=== PATIENT | male | born 1945 | race Caucasian/White ===

== ENCOUNTER → 2023-07-15 12:40 | Outpatient (REF) | payer MEDICARE, OTHER, SELFPAY ==
[2023-07-15 13:24] LABS: % Basophils 0.8 % (0-2); % Eosinophils 4.9 % (0-6); % Immature Granulocytes 0.2 % (0-0.5); % Lymphocytes 20.4 % (20.5-51.1); % Monocytes 11.8 % (1.7-9.3); % Neutrophils 61.9 % (42.2-75.2); Absolute Eosinophils 0.2 10^3/uL (0-0.7); Absolute Monocytes 0.6 10^3/uL (0.1-0.6); Hemoglobin 11.3 g/dL (13.0-18.0); Mean Corp Hgb Conc. 35.3 g/dL (33.0-37.0); Mean Corpuscular Hgb 32.4 pg (27.0-31.0); Mean Corpuscular Volume 91.7 fL (80.0-94.0); Mean Platelet Volume 9.2 fL (7.4-10.4); Nucleated Red Blood Cells % 0 % (-); Platelet Count 206 10^3/uL (130-400); Red Blood Cell Count 3.49 10^6/uL (4.70-6.10); Red Cell Dist. Width 13.5 % (11.5-14.5); White Blood Cell Count 4.9 10^3/uL (4.8-10.8)
[2023-07-15 13:50] LABS: ALT (SGPT) 12 U/L (0-50); AST (SGOT) 23 U/L (17-59); Albumin 3.8 g/dl (3.5-5.0); Alkaline Phosphatase 82 U/L (38-126); Blood Urea Nitrogen 22 mg/dl (9-20); Calcium 8.5 mg/dl (8.4-10.2); Carbon Dioxide 23 mmol/L (22-30); Chloride 97 mmol/L (98-107); Glucose 83 mg/dl (70-99); HDL Cholesterol 74 mg/dl; LDL Cholesterol, Calculated 63 mg/dl; Potassium 4.8 mmol/L (3.5-5.1); Sodium 125 mmol/L (135-145); Total Bilirubin 0.7 mg/dl (0.2-1.3); Total Cholesterol 149 mg/dl (50-199); Total Protein 6.6 g/dl (6.3-8.2); Triglyceride 61 mg/dl (10-149); Very Low Density Lipoprotein 12 mg/dl (0-30); eGFR 33.74
[2023-07-15 14:19] LABS: PSA, Total - Screen 0.61 ng/ml (0.0-4.0)
== END ==
LOC: REG 12:40
PROVIDERS: ATTENDING PHYSICIAN Internal Medicine
DX: Z00.00 Encounter for general adult medical examination without abnormal findings (principal); I10 Essential (primary) hypertension; D64.9 Anemia, unspecified; R63.4 Abnormal weight loss; N40.0 Benign prostatic hyperplasia without lower urinary tract symptoms; Z12.5 Encounter for screening for malignant neoplasm of prostate
CPT/HCPCS: 36415; 80053; 80061; 85025; G0103

== ENCOUNTER 2023-07-19 12:14 | Emergency (ER) | payer MEDICARE, OTHER, SELFPAY ==
[2023-07-19 12:19] VITALS: BP 216/114
--- NOTE | 2023-07-19 12:38 | ED.GENMED ---
History of Present Illness
General
Chief Complaint: Cough
Source: patient
Exam Limitations: none
Time Seen by Provider: 07/19/23 12:32
Nursing documentation reviewed up to this point in time: agreed with
Travel History
Have you had any contact with someone who has COVID-19?: No
Do you have any symptoms of coronavirus? Fever > 100 degrees, chills, cough, shortness of breath, sore throat, loss of taste or smell, muscle aches, or headache?: No
History of Present Illness
History of Present Illness:
77-year-old male with history of HTN, COPD, smoker, presents stating he has a little worse than usual cough past 2 days, yesterday coughed blood 'about 3 dozen times.' Today 'not as much and not as much blood.' Denies fever/chills, denies CP, SOB
any worse than usual. Denies n/v/d/c.
Had out pt lab work 2 days ago in prep for PCP routine visit.
Past History
Past History
ED Past Medical History: HTN
ED Past Surgical History: Orthopedic and Other (Epidural injection 10/21)
Social History
Tobacco: Smoker
Alcohol: None
Personal:
Living: with family
Employment: Retired
Review of Systems
Review of Systems
Allergies reviewed?: Yes
All Other Systems: ROS reviewed and negative except as documented in HPI and ROS
Constitutional: Denies fever or chills
Respiratory: Reports cough and hemoptysis; Denies trouble breathing
Cardiac: Denies chest pain
ABD/GI: Denies abdominal pain, nausea or vomiting
: Denies dysuria or difficulty voiding
Musculoskeletal: Denies edema
Skin: Reports no symptoms
Neurological: Denies dizzy, headache, weakness or numbness
Phy Exam
Physical Exam
Physical Exam:
GENERAL: No acute distress. A&Ox3.
CONSTITUTIONAL: Afebrile.
EYES: Clear, conjunctivae normal
ENMT: moist mucus membranes, Pharynx nl
RESPIRATORY: Regular respirations, nonlabored, lungs clear. Intermittent cough with hemoptysis
CARDIOVASCULAR: Regular rate and rhythm, no murmurs, no rubs.
GI: Soft, nontender
MUSCULOSKELETAL: Moves with ease. Well perfused.
SKIN: Warm, dry, pink
PSYCH: Normal mood and affect. Well kept, interactive and appropriate
NEUROLOGIC: Awake, alert and oriented. No focal neurological deficits
Course
Orders/Labs/Results
Orders:
Orders
07/19/23 12:45
Electrocardiogram (*1) Urgent
Reason for Study: Other
Other Reason for Exam: Respiratory Distress
Cardiac Monitoring- Treatment ONCE
EKG- Treatment ONCE
IV Insert/Care/Rem.- Treatment PRN
O2 Therapy [RESP] Urgent
Titrate/Wean O2 to maintain O2 sat greater than (%): 93
Special Instructions: TO MAINTAIN CONTINUOUS O2 SATS >/= 93%
Pulse Ox/cont/shift [RESP] Urgent
Quantity: 1
Special Instructions: continuous pulse ox
07/19/23 12:48
Complete Blood Count/With Diff Urgent
Comprehensive Metabolic Panel Urgent
DDimer [D-Dimer] Urgent
NT-proBNP Urgent
Troponin I Urgent
07/19/23 13:23
CT Chest Pe Study Urgent
Comment:
Reason For Exam: coughing up blood, elevated dimer
Abnormal Lab Results
07/19/23
12:48
RBC 3.48 L 10^6/uL
(4.70-6.10)
Hgb 11.5 L g/dL
(13.0-18.0)
Hct 32.7 L %
(39.0-52.0)
MCH 33.0 H pg
(27.0-31.0)
Absolute Lymphs (auto) 0.9 L 10^3/uL
(1.2-3.4)
Lymphocytes % 17.6 L %
(20.5-51.1)
Monocytes % 11.4 H %
(1.7-9.3)
D-Dimer 1.66 H ug/mlFEU
(0.00-0.50)
Sodium 128 L mmol/L
(135-145)
BUN 23 H mg/dl
(9-20)
Creatinine 1.9 H mg/dL
(0.7-1.3)
07/19/23 12:48
07/19/23 12:48
Vital Signs
Initial and Last Documented VS:
Initial Vital Signs
Temp Pulse Resp BP Pulse Ox
98.7 F 74 18 216/114 99
07/19/23 12:19 07/19/23 12:19 07/19/23 12:19 07/19/23 12:19 07/19/23 12:19
Last Documented Vital Signs
Temp Pulse Resp BP Pulse Ox
98.7 F 83 21 202/97 99
07/19/23 12:19 07/19/23 13:57 07/19/23 13:57 07/19/23 15:41 07/19/23 12:19
MDM/Problems Addressed
Differential Diagnosis Includes:
CHF, PE, pneumonia, lung cancer
MDM/Problems Addressed:
77-year-old male with history of HTN, COPD, smoker, presents stating he has a little worse than usual cough past 2 days, yesterday coughed blood 'about 3 dozen times.' Today 'not as much and not as much blood.' Denies fever/chills, denies CP, SOB
any worse than usual. Denies n/v/d/c.
Had out pt lab work 2 days ago in prep for PCP routine visit.
07/19/2023 1324 PM
CBC with no clinically significant abnormality, his baseline anemia
CMP: Sodium 128, BUN/creat 23/1.9, his baseline
D-dimer elevated at 1.66
07/19/2023 1515 PM
CAT scan chest PE study radiology report read: 1. No evidence of pulmonary embolism or thoracic aortic dissection. Extensive plaque within the thoracic and thoracoabdominal aorta, without aneurysm or dissection.
2. Focal ground glass opacity within the medial segment of the left upper lobe, new compared to prior CT, suggestive of pneumonia.
3. Moderate centrilobular and paraseptal emphysema, which has progressed compared to prior CT dated 08/05/2021.
4. Severe coronary arterial calcification. Please correlate with symptoms of and risk factors for coronary artery disease, with further workup as clinically appropriate.
07/19/2023 1553 PM
Patient is hypertensive, asymptomatic, has a prescheduled appointment to see his primary doctor in 9 days. States he takes his blood pressure meds religiously and did take it today. He will record his daily blood pressure and discuss with his PCP
Discussed smoking sensation with him, he is not interested
Prescription for doxycycline sent to his pharmacy. He is stable for discharge
Patient ambulated out with steady gait at discharge
Chronic conditions affecting care: HTN and COPD
*Critical Care Note
Total Time (30-74mins, 75-104mins- exclusive of procedures): Not Applicable
ED Attending Note
-
Portions of this chart may have been created with voice recognition software.� Occasional wrong word or��sound alike� substitutions may have occurred due to the inherent limitations of voice recognition software.
Discharge Plan
Departure
Patient Disposition: Home (Routine Discharge)
Date of Disposition: 07/19/23
Time of Disposition: 15:33
Patient with high blood pressure during this ER visit?: Yes
Condition: Fair
Discharge Problem:
Pneumonia, Cough with hemoptysis
Instructions: Pneumonia, Adult (DC), BLOOD PRESSURE
Prescriptions:
New
doxycycline hyclate 100 mg capsule
100 mg PO BID Qty: 14 0RF
No Action
potassium chloride [Klor-Con M20] 20 MEQ tablet,ER particles/crystals
20 meq PO DAILY
Patient Comments:
07/19/2023, pt. cuts pill in half and takes both halves at once daily.
metoprolol succinate 25 MG tablet extended release 24 hr
25 mg PO DAILY
losartan [Cozaar] 100 MG tablet
100 mg PO DAILY
finasteride 5 MG tablet
5 mg PO DAILY
indomethacin 25 mg Capsule
25 mg PO TID PRN (Reason: inflammation)
Trelegy Ellipta 100-62.5-25 mcg Blister With Device
1 inh INHALATION R DAILY
sodium chloride 1 GRAM tablet,soluble
1 g PO DAILY
bumetanide 1 MG tablet
1 mg PO DAILY
Referrals:
Rylee Nunez, [Active] - Call in 1-3 days for appt
Luis A Trujillo MD [Family Provider] - Keep scheduled appt
Activity Restrictions/Additional Instructions:
As we discussed, I sent a prescription for an antibiotic to your pharmacy. Pick it up and start it tonight.
All of the mechanical maintenance are in the same office but I gave you the name of a new one that you can call and see if you can get in to see.
Keep your appointment with your doctor on 07/28. Take your blood pressure same time every day and discuss with your doctor at that visit.
Interventions
Interventions:
*Risk Screen - Suicide Last Done: 07/19/23 12:19
*General Assessment Last Done: 07/19/23 12:19
*Neglect/Abuse Screening Last Done: 07/19/23 12:19
ED- Fall Risk Assessment Last Done: 07/19/23 12:52
*ED COVID-19 Vaccine History Last Done: 07/19/23 12:19
*Nursing Disposition Last Done: 07/19/23 15:56
ED- Pulmonary Assessment Last Done: 07/19/23 12:52
Discharge Date and Time
Discharge Date/Time: 07/19/23 15:56
[2023-07-19 12:46] VITALS: BMI 21.4
[2023-07-19 13:00] VITALS: BP 202/101
[2023-07-19 13:04] LABS: % Basophils 0.6 % (0-2); % Eosinophils 3.1 % (0-6); % Immature Granulocytes 0.2 % (0-0.5); % Lymphocytes 17.6 % (20.5-51.1); % Monocytes 11.4 % (1.7-9.3); % Neutrophils 67.1 % (42.2-75.2); Absolute Eosinophils 0.2 10^3/uL (0-0.7); Absolute Lymphocytes 0.9 10^3/uL (1.2-3.4); Absolute Monocytes 0.6 10^3/uL (0.1-0.6); Absolute Neutrophils 3.4 10^3/uL (1.4-6.5); Hematocrit 32.7 % (39.0-52.0); Hemoglobin 11.5 g/dL (13.0-18.0); Mean Corp Hgb Conc. 35.2 g/dL (33.0-37.0); Mean Platelet Volume 9.3 fL (7.4-10.4); Nucleated Red Blood Cells % 0 % (-); Platelet Count 198 10^3/uL (130-400); Red Blood Cell Count 3.48 10^6/uL (4.70-6.10); Red Cell Dist. Width 13.4 % (11.5-14.5); White Blood Cell Count 5.1 10^3/uL (4.8-10.8)
[2023-07-19 13:10] LABS: D-Dimer 1.66 ug/mlFEU (0.00-0.50)
[2023-07-19 13:13] LABS: ALT (SGPT) 13 U/L (0-50); AST (SGOT) 22 U/L (17-59); Albumin 4.1 g/dl (3.5-5.0); Alkaline Phosphatase 83 U/L (38-126); Blood Urea Nitrogen 23 mg/dl (9-20); Calcium 8.7 mg/dl (8.4-10.2); Carbon Dioxide 22 mmol/L (22-30); Chloride 100 mmol/L (98-107); Estimated Creatinine Clearance 33 ml/min; Glucose 95 mg/dl (70-99); Potassium 4.2 mmol/L (3.5-5.1); Sodium 128 mmol/L (135-145); eGFR 35.88
[2023-07-19 13:25] LABS: NT-proBNP 5020 pg/ml; Troponin I 0.032 ng/ml
[2023-07-19 15:41] VITALS: BP 202/97
== END 2023-07-19 15:56 | disposition home or self-care (01) ==
LOC: EMR 12:14
PROVIDERS: Registered Nurse; EMERGENCY PHYSICIAN Emergency Medicine; FAMILY PHYSICIAN Internal Medicine
DX: J18.9 Pneumonia, unspecified organism (principal); R05.9 Cough, unspecified; R04.2 Hemoptysis; I11.0 Hypertensive heart disease with heart failure; I50.9 Heart failure, unspecified; F17.200 Nicotine dependence, unspecified, uncomplicated
CPT/HCPCS: 99284; 71275; 80053; 83880; 84484; 85025; 85379; 93005; Q9967

== ENCOUNTER → 2023-08-11 11:36 | Outpatient (REF) | payer MEDICARE, OTHER, SELFPAY ==
[2023-08-11 13:13] LABS: % Basophils 0.6 % (0-2); % Eosinophils 2.8 % (0-6); % Immature Granulocytes 0.4 % (0-0.5); % Monocytes 7.9 % (1.7-9.3); % Neutrophils 71.3 % (42.2-75.2); Absolute Eosinophils 0.1 10^3/uL (0-0.7); Absolute Lymphocytes 0.8 10^3/uL (1.2-3.4); Absolute Monocytes 0.4 10^3/uL (0.1-0.6); Absolute Neutrophils 3.5 10^3/uL (1.4-6.5); Hematocrit 32.6 % (39.0-52.0); Hemoglobin 11.5 g/dL (13.0-18.0); Mean Corp Hgb Conc. 35.3 g/dL (33.0-37.0); Mean Corpuscular Hgb 32.4 pg (27.0-31.0); Mean Corpuscular Volume 91.8 fL (80.0-94.0); Mean Platelet Volume 9.6 fL (7.4-10.4); Nucleated Red Blood Cells % 0 % (-); Platelet Count 197 10^3/uL (130-400); Red Blood Cell Count 3.55 10^6/uL (4.70-6.10); Red Cell Dist. Width 13.5 % (11.5-14.5); White Blood Cell Count 4.9 10^3/uL (4.8-10.8)
[2023-08-11 13:51] LABS: Blood Urea Nitrogen 26 mg/dl (9-20); Iron 77 ug/dl (49-181)
[2023-08-11 14:01] LABS: Percent Saturation 29 % (20-50); Total Iron Binding Capacity 264 ug/dl (261-462)
[2023-08-11 14:55] LABS: Vitamin B12 383 pg/ml (239-931)
== END ==
LOC: REG 11:36
PROVIDERS: ATTENDING PHYSICIAN Internal Medicine
DX: D64.9 Anemia, unspecified (principal); E86.0 Dehydration; Z79.899 Other long term (current) drug therapy
CPT/HCPCS: 36415; 82565; 82607; 82746; 83540; 83550; 84520; 85025

== ENCOUNTER 2024-03-31 10:58 | Emergency (ER) | payer MEDICARE, OTHER, SELFPAY ==
[2024-03-31 11:07] VITALS: BP 220/101
[2024-03-31 11:27] VITALS: BP 202/123
[2024-03-31 12:18] LABS: % Basophils 0.5 % (0-2); % Immature Granulocytes 0.5 % (0-0.5); % Lymphocytes 13.1 % (20.5-51.1); % Monocytes 11.7 % (1.7-9.3); % Neutrophils 72.2 % (42.2-75.2); Absolute Eosinophils 0.1 10^3/uL (0-0.7); Absolute Lymphocytes 0.8 10^3/uL (1.2-3.4); Absolute Monocytes 0.8 10^3/uL (0.1-0.6); Absolute Neutrophils 4.6 10^3/uL (1.4-6.5); Hematocrit 30.9 % (39.0-52.0); Hemoglobin 10.9 g/dL (13.0-18.0); Mean Corp Hgb Conc. 35.3 g/dL (33.0-37.0); Mean Corpuscular Hgb 31.9 pg (27.0-31.0); Mean Corpuscular Volume 90.4 fL (80.0-94.0); Mean Platelet Volume 8.8 fL (7.4-10.4); Nucleated Red Blood Cells % 0 % (-); Platelet Count 164 10^3/uL (130-400); Red Blood Cell Count 3.42 10^6/uL (4.70-6.10); Red Cell Dist. Width 13.5 % (11.5-14.5); White Blood Cell Count 6.4 10^3/uL (4.8-10.8)
[2024-03-31 12:45] LABS: ALT (SGPT) 13 U/L (0-50); AST (SGOT) 19 U/L (17-59); Albumin 4.2 g/dl (3.5-5.0); Alkaline Phosphatase 70 U/L (38-126); Blood Urea Nitrogen 26 mg/dl (9-20); Calcium 8.9 mg/dl (8.4-10.2); Carbon Dioxide 21 mmol/L (22-30); Chloride 99 mmol/L (98-107); Glucose 98 mg/dl (70-99); Potassium 4.4 mmol/L (3.5-5.1); Sodium 132 mmol/L (135-145); Total Bilirubin 1.2 mg/dl (0.2-1.3); eGFR 29.91
--- NOTE | 2024-03-31 13:14 | ED.GENMED ---
History of Present Illness
General
Chief Complaint: Skin Problem
Source: patient
Exam Limitations: none
Time Seen by Provider: 03/31/24 11:37
History of Present Illness
History of Present Illness:
78-year-old male presents to the ER for evaluation of right wrist pain and swelling. He reports yesterday morning around 2 AM he noticed pain while sleeping in his right wrist and since then has had pain and swelling and mild redness of the right
wrist. He went to his family doctor's office today and was sent here to the ER. He denies any fever chills or he denies any injury. He was outside working and is unsure he got bit by an insect. He is not a diabetic. He is right-hand dominant.
He did not take any of his blood pressure medications today.
Past History
Past History
ED Past Medical History: HTN
ED Past Surgical History: Orthopedic and Other (Epidural injection 10/21)
Social History
Tobacco: Smoker
Alcohol: None
Personal:
Living: with family
Employment: Retired
Review of Systems
Review of Systems
Allergies reviewed?: Yes
All Other Systems: ROS reviewed and negative except as documented in HPI and ROS
Constitutional: Reports no symptoms; Denies fever
Cardiac: Reports no symptoms
ABD/GI: Reports no symptoms
: Reports no symptoms
Musculoskeletal: Reports other (right wrist pain /swelling )
Phy Exam
General Physical Exam
General Presentation: no apparent distress
General age: appears stated age
General Skin: warm and dry
General Habitus: normal
General Mental: alert
General Hydration: appears well hydrated
Cardiovascular Exam
Cardiovascular Exam: regular rate/rhythm, no murmur and normal peripheral pulses
Pulmonary Exam
Pulmonary Exam: lungs clear and no respiratory distress
Neurological Exam
Neurological Exam: alert and oriented x3
Musculoskeletal Exam
Musculoskeletal Exam: other (right upper extremity with swelling redness tender throughout able to flex and extend with some discomfort strong distal pulses normal sensation)
Skin Exam
Skin Exam: normal color and warm/dry
Psychiatric Exam
Psychiatric Exam: normal mood/affect
Course
Orders/Labs/Results
Orders:
Orders
03/31/24 11:50
IV Insert/Care/Rem.- Treatment PRN
Wrist, Right 3 Views [CR Wrist - Right Min 3 Views] Urgent
Comment:
Reason For Exam: pain/swelling/redness
03/31/24 12:11
Complete Blood Count/With Diff Urgent
Comprehensive Metabolic Panel Urgent
03/31/24 13:16
Losartan [Cozaar] 100 mg PO NOW STA
Metoprolol [Lopressor] 25 mg PO NOW STA
03/31/24 13:19
CeFAZolin 2 GRAM [Ancef] 2 grams in 10 ml IV NOW
03/31/24 15:46
HydrALAZINE [Apresoline] 10 mg IV NOW STA
Abnormal Lab Results
03/31/24
12:11
RBC 3.42 L 10^6/uL
(4.70-6.10)
Hgb 10.9 L g/dL
(13.0-18.0)
Hct 30.9 L %
(39.0-52.0)
MCH 31.9 H pg
(27.0-31.0)
Absolute Lymphs (auto) 0.8 L 10^3/uL
(1.2-3.4)
Absolute Monos (auto) 0.8 H 10^3/uL
(0.1-0.6)
Lymphocytes % 13.1 L %
(20.5-51.1)
Monocytes % 11.7 H %
(1.7-9.3)
Sodium 132 L mmol/L
(135-145)
Carbon Dioxide 21 L mmol/L
(22-30)
BUN 26 H mg/dl
(9-20)
Creatinine 2.2 H mg/dL
(0.7-1.3)
03/31/24 12:11
03/31/24 12:11
Vital Signs
Initial and Last Documented VS:
Initial Vital Signs
Temp Pulse Resp BP Pulse Ox
97.7 F 83 18 220/101 95
03/31/24 11:07 03/31/24 11:07 03/31/24 11:07 03/31/24 11:07 03/31/24 11:07
Last Documented Vital Signs
Temp Pulse Resp BP Pulse Ox
97.7 F 83 18 197/82 95
03/31/24 11:07 03/31/24 11:07 03/31/24 11:07 03/31/24 16:26 03/31/24 11:07
Housekeeper Manager consulted with Physician
Housekeeper Manager consulted with physician?: Yes
Name of Physician Consulted: Felicity
MDM/Problems Addressed
MDM/Problems Addressed:
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 He was seen by family doctor briefly and sent here to the ER. He has pain with range of motion. He presents
afebrile no acute distress however on exam there is obvious swelling and erythema to wrist he does have pain with range of motion. He is afebrile with a normal white count. PCP Dr. Dash Trujillo noted the patient had outpatient labs recently
in [facility] which showed BUN of 26 and creatinine of 2.24
. He has no other complaints eval by ED physician we do recommend he be admitted to the hospital for IV antibiotics as we are unable to rule out septic arthritis her he does not want to stay.
will d/c on antix with close f/u by ortho.
In addition patient has a history of high blood pressure had not taken his medicine today and presented hypertensive though he denies any headache blurred vision chest pain shortness of breath. He was medicated with his medications and was given IV
hydralazine.
Patient anxious wants to leave wants to have a cigarette likely all contributing to his elevated blood pressure however I did review with him the importance of getting this blood pressure checked and to continue taking his medications.
I did discuss with patient however to return if any worsening of symptoms if increased pain swelling redness fever chills Discussed the importance of close outpatient follow-up with PCP and Ortho for re-evaulation.
*Critical Care Note
Total Time (30-74mins, 75-104mins- exclusive of procedures): Not Applicable
ED Attending Note
-
Portions of this chart may have been created with voice recognition software.� Occasional wrong word or��sound alike� substitutions may have occurred due to the inherent limitations of voice recognition software.
Discharge Plan
Departure
Patient Disposition: Home (Routine Discharge)
Date of Disposition: 03/31/24
Time of Disposition: 17:01
Patient with high blood pressure during this ER visit?: Yes
Condition: Fair
Covid-19: Not Applicable
Discharge Problem:
Cellulitis
Instructions: Cellulitis (Skin Infection), Adult (DC), BLOOD PRESSURE
Prescriptions:
New
cephalexin 500 mg capsule
500 mg PO Q6H Qty: 40 0RF
No Action
potassium chloride [Klor-Con M20] 20 MEQ tablet,ER particles/crystals
20 meq PO DAILY
metoprolol succinate 25 MG tablet extended release 24 hr
25 mg PO DAILY
losartan [Cozaar] 100 MG tablet
100 mg PO DAILY
finasteride 5 MG tablet
5 mg PO DAILY
Trelegy Ellipta 100-62.5-25 mcg Blister With Device
1 inh INHALATION R DAILY
bumetanide 1 MG tablet
1 mg PO DAILY
Referrals:
Jayson Fuentes MD [Active] -
Luis A Trujillo MD [Family Provider] -
Activity Restrictions/Additional Instructions:
As discussed you were given 1 antibiotic here in the ER however a prescription was sent to your pharmacy. take as directed including a second dose tonight. Follow-up with orthopedics/your family doctor in the next 2 days for reevaluation of
symptoms.
Also your blood pressure was very elevated here in the ER. please take your medicine as previously instructed and have your family doctor recheck in the next 2 days.
Return if any worsening of symptoms of increased pain swelling redness drainage fever chills
Interventions
Interventions:
*Risk Screen - Suicide Last Done: 03/31/24 11:13
*General Assessment Last Done: 03/31/24 11:13
*Neglect/Abuse Screening Last Done: 03/31/24 11:13
ED- Fall Risk Assessment Last Done: 03/31/24 11:39
*ED COVID-19 Vaccine History Last Done: 03/31/24 17:09
*Nursing Disposition Last Done: 03/31/24 17:09
ED-Skin Assessment Last Done: 03/31/24 11:39
Discharge Date and Time
Print Language: ZAMBIAN
[2024-03-31] MEDS: ANCEF 10 IV (13:45)
[2024-03-31] MEDS: COZAAR 100 MG PO (13:45)
[2024-03-31] MEDS: LOPRESSOR 25 MG PO (13:45)
[2024-03-31 13:51] VITALS: BP 200/93
[2024-03-31] MEDS: APRESOLINE 10 MG IV (16:18)
[2024-03-31 16:26] VITALS: BP 197/82
== END 2024-03-31 17:12 | disposition home or self-care (01) ==
LOC: EMR 10:58
PROVIDERS: Nurse Practitioner; EMERGENCY PHYSICIAN Emergency Medicine; FAMILY PHYSICIAN Internal Medicine
DX: L03.113 Cellulitis of right upper limb (principal); I10 Essential (primary) hypertension; F17.200 Nicotine dependence, unspecified, uncomplicated
CPT/HCPCS: 96374; 96375; 99284; 73110; 80053; 85025

== ENCOUNTER → 2024-07-12 10:51 | Outpatient (REF) | payer MEDICARE, OTHER, SELFPAY | LOC: RAD 10:51 | PROVIDERS: ATTENDING PHYSICIAN Podiatrist Foot Surgery | DX: I73.9 Peripheral vascular disease, unspecified (principal) | CPT/HCPCS: 93922; 93925 ==

== ENCOUNTER → 2024-09-08 09:06 | Outpatient (REF) | payer MEDICARE, OTHER, SELFPAY ==
[2024-09-08 10:05] LABS: % Basophils 1.2 % (0-2); % Eosinophils 6.1 % (0-6); % Immature Granulocytes 0.2 % (0-0.5); % Monocytes 10.3 % (1.7-9.3); % Neutrophils 59.2 % (42.2-75.2); Absolute Basophils 0.1 10^3/uL (0-0.2); Absolute Eosinophils 0.3 10^3/uL (0-0.7); Absolute Monocytes 0.4 10^3/uL (0.1-0.6); Absolute Neutrophils 2.5 10^3/uL (1.4-6.5); Hematocrit 30.9 % (39.0-52.0); Hemoglobin 10.5 g/dL (13.0-18.0); Mean Corpuscular Hgb 31.7 pg (27.0-31.0); Mean Corpuscular Volume 93.4 fL (80.0-94.0); Mean Platelet Volume 9.8 fL (7.4-10.4); Nucleated Red Blood Cells % 0 % (-); Platelet Count 179 10^3/uL (130-400); Red Blood Cell Count 3.31 10^6/uL (4.70-6.10); Red Cell Dist. Width 13.6 % (11.5-14.5); White Blood Cell Count 4.3 10^3/uL (4.8-10.8)
[2024-09-08 10:32] LABS: Blood Urea Nitrogen 35 mg/dl (9-20); Carbon Dioxide 20 mmol/L (22-30); Chloride 104 mmol/L (98-107); Glucose 91 mg/dl (70-99); Potassium 5.5 mmol/L (3.5-5.1); Sodium 133 mmol/L (135-145); eGFR 23.39
== END ==
LOC: REG 09:06
PROVIDERS: ATTENDING PHYSICIAN Internal Medicine
DX: Z01.818 Encounter for other preprocedural examination (principal); H27.10 Unspecified dislocation of lens
CPT/HCPCS: 36415; 80048; 85025; 93005

== ENCOUNTER → 2024-09-15 15:42 | Outpatient (REF) | payer MEDICARE, OTHER, SELFPAY | LOC: RAD 15:42 | PROVIDERS: ATTENDING PHYSICIAN Nurse Practitioner Adult Health; FAMILY PHYSICIAN Internal Medicine | DX: R91.8 Other nonspecific abnormal finding of lung field (principal) | CPT/HCPCS: 71250 ==

== ENCOUNTER → 2025-03-19 11:30 | Outpatient (REF) | payer MEDICARE, OTHER, SELFPAY ==
[2025-03-19 13:07] LABS: Hematocrit 29.2 % (39.0-52.0); Hemoglobin 10.0 g/dL (13.0-18.0); Mean Corp Hgb Conc. 34.2 g/dL (33.0-37.0); Mean Corpuscular Volume 92.1 fL (80.0-94.0); Nucleated Red Blood Cells % 0 % (-); Platelet Count 211 10^3/uL (130-400); Red Cell Dist. Width 13.9 % (11.5-14.5)
[2025-03-19 13:46] LABS: ALT (SGPT) < 10 U/L (0-50); AST (SGOT) 17 U/L (17-59); Albumin 3.8 g/dl (3.5-5.0); Alkaline Phosphatase 72 U/L (38-126); Blood Urea Nitrogen 30 mg/dl (9-20); Calcium 8.4 mg/dl (8.4-10.2); Carbon Dioxide 20 mmol/L (22-30); Chloride 104 mmol/L (98-107); Glucose 86 mg/dl (70-99); HDL Cholesterol 68 mg/dl; LDL Cholesterol, Calculated 66 mg/dl; Potassium 4.8 mmol/L (3.5-5.1); Sodium 129 mmol/L (135-145); Total Protein 6.8 g/dl (6.3-8.2); Very Low Density Lipoprotein 10 mg/dl (0-30); eGFR 24.32
== END ==
LOC: REG 11:30
PROVIDERS: ATTENDING PHYSICIAN Internal Medicine
DX: D64.9 Anemia, unspecified (principal); N18.30 Chronic kidney disease, stage 3 unspecified; D63.8 Anemia in other chronic diseases classified elsewhere; Z00.01 Encounter for general adult medical examination with abnormal findings; Z12.5 Encounter for screening for malignant neoplasm of prostate; I10 Essential (primary) hypertension; C61 Malignant neoplasm of prostate
CPT/HCPCS: 36415; 80053; 80061; 84153; 84154; 85025

== ENCOUNTER → 2025-04-09 14:54 | Outpatient (REF) | payer MEDICARE, OTHER, SELFPAY | LOC: RAD 14:54 | PROVIDERS: ATTENDING PHYSICIAN Internal Medicine | DX: N18.4 Chronic kidney disease, stage 4 (severe) (principal) | CPT/HCPCS: 76770 ==

== ENCOUNTER 2025-05-04 18:58 | Emergency (ER) | payer MEDICARE, OTHER, SELFPAY ==
[2025-05-04 19:03] VITALS: BP 233/112
--- NOTE | 2025-05-04 19:37 | ED.GENMED ---
History of Present Illness
General
Chief Complaint: Cough
Source: patient
Exam Limitations: none
Time Seen by Provider: 05/04/25 19:24
Nursing documentation reviewed up to this point in time: agreed with
History of Present Illness
History of Present Illness:
Note:
CHIEF COMPLAINT(S)
Coughing up blood (hemoptysis).
HISTORY OF PRESENT ILLNESS
The patient is a 79-year-old male who presented with coughing up blood, which started this morning. He mentioned that this is the first time he has experienced such symptoms. The hemoptysis began just before arrival at the facility. The patient
described the blood as soaking into tissues, indicating moderate quantity, but estimated coughing it up only a couple of times. He denied any chest pain associated with the coughing. The patient is actively smoking. There was no mention of prior
episodes of hemoptysis.
PAST MEDICAL AND SURGICAL HISTORY
- Chronic Obstructive Pulmonary Disease (COPD)
- Hyponatremia (low sodium level)
CHRONIC MEDICAL CONDITIONS SIGNIFICANTLY AFFECTING CARE
- Chronic Obstructive Pulmonary Disease (COPD)
- Hyponatremia
MEDICATIONS
- Losartan
- Trilogy (for COPD)
- Potassium supplement (for low sodium)
REVIEW OF SYSTEMS
- Respiratory: Coughing up blood, no reported shortness of breath.
- Cardiovascular: No chest pain.
PHYSICAL EXAM
General: Alert, no acute distress.
Skin: Warm, dry.
Head: Normocephalic, atraumatic.
Neck: Supple, trachea midline.
Eyes, Ears, Nose, Mouth, and Throat: Oral mucosa moist.
Cardiovascular: Normal peripheral perfusion, no edema.
Respiratory: Respirations are non-labored.
Gastrointestinal: Abdomen nondistended.
Back: Normal range of motion, normal alignment.
Musculoskeletal: Normal range of motion, normal strength.
Neurological: Alert and oriented to person, place, time, and situation. No focal neurological deficit observed.
Psychiatric: Cooperative, appropriate mood & affect.
PLAN
The plan is to either perform a chest X-ray or a computed tomography (CT) scan to evaluate the cause of the hemoptysis. The attending provider plans to review previous medical records to gather further insight into potential chronic conditions or
past related incidents.
DIFFERENTIAL DIAGNOSIS
The Differential Diagnosis includes, in no particular order and is not limited to:
1. Lung cancer
2. Pulmonary embolism
3. Infectious bronchitis
4. Tuberculosis
5. Bronchiectasis
6. Pneumonia
7. Pulmonary edema
8. Coagulopathy-related bleeding
9. Foreign body aspiration
10. Trauma to the respiratory tract
CARE-UPDATE
05/04/25 - 23:20
Patient declines hospital admission; will continue outpatient treatment. Will treat empirically with Augmentin and doxycycline despite no signs of pneumonia or focal infiltrate on chest x-ray. Pulmonology follow-up is scheduled. Blood pressure
improved during observation after administering losartan and metoprolol.
Disposition:
SUMMARY OF ENCOUNTER
The patient, a 79-year-old male, presented with hemoptysis, which began earlier in the day. He reported the blood soaking into tissues, indicating a moderate quantity, but estimated coughing it up only a couple of times. The patient is an active
smoker and denies chest pain. No prior episodes of hemoptysis were mentioned. Considering the risks associated with hemoptysis in a smoker, a chest X-ray or CT scan was considered necessary to rule out possible causes such as lung cancer or
pulmonary embolism amongst other differential diagnoses. The patient declined hospital admission and agreed to outpatient treatment with a pulmonology follow-up. Augmentin and doxycycline were prescribed empirically despite no chest X-ray evidence
of pneumonia.
DISPOSITION
Patient declines hospital admission; will continue outpatient treatment.
ASSESSMENT
Hemoptysis potentially related to underlying chronic conditions (COPD), possible differential diagnosis includes lung malignancy, infection, or coagulopathy.
PLAN
Proceed with outpatient management and follow-up with pulmonology. Empirical antibiotic treatment with Augmentin and doxycycline has been initiated despite no signs of pneumonia to cover potential infections.
PATIENT EDUCATION AND COUNSELING
The patient was educated about hemoptysis and the importance of follow-up with a arc trimmer to further investigate potential causes and manage his chronic conditions effectively. He was also advised on the signs and symptoms that would
necessitate a return to the emergency department.
FOLLOW-UP INSTRUCTIONS
Follow-up with pulmonology as scheduled.
MEDICATION RECONCILIATION
Prescriptions:
- Augmentin (Amoxicillin-Clavulanate)
- Doxycycline
MEDICAL DECISION MAKING
-Complexity of Data Reviewed: Chronic conditions affecting care include chronic obstructive pulmonary disease (COPD) and hyponatremia. Differential diagnosis considered includes lung cancer, pulmonary embolism, infectious bronchitis, tuberculosis,
bronchiectasis, pneumonia, pulmonary edema, coagulopathy-related bleeding, foreign body aspiration, trauma to the respiratory tract.
-Data:
Category 1
Tests and documents: Chest X-ray or CT scan considered for evaluating hemoptysis.
Category 2
No additional sources of history or independent interpretations mentioned.
Category 3
No outside discussions with other healthcare providers documented.
-Risk:
Consideration of Admission/Observation: Escalation of care including admission/observation was considered given the complexity and risk of the patients presenting complaint and exam findings. However, ultimately the patient is safe for outpatient
management with close follow-up. Reasoning: Work-up reassuring, does not reveal any acute life/organ threatening processes; patients symptoms are well controlled upon reevaluation; reexamination is reassuring; vitals are stable; patient agrees with
discharge and is reliable for follow-up.
DIAGNOSIS
Hemoptysis - R04.2
Hypertensive urgency - I16.0
Chronic Obstructive Pulmonary Disease (COPD) - J44.9
Past History
Past History
ED Past Medical History: HTN
ED Past Surgical History: Orthopedic and Other (Epidural injection 10/21)
Social History
Tobacco: Smoker
Alcohol: None
Personal:
Living: with family
Employment: Retired
Phy Exam
Physical Exam
Physical Exam:
.
Course
Orders/Labs/Results
Orders:
Orders
05/04/25 19:07
Electrocardiogram (*1) Urgent
Reason for Study: Other
Other Reason for Exam: Respiratory Distress
Cardiac Monitoring- Treatment ONCE
EKG- Treatment ONCE
IV Insert/Care/Rem.- Treatment PRN
CR Chest - 2 Views Urgent
Comment:
Reason For Exam: respiratory distress
O2 Therapy [RESP] Urgent
Titrate/Wean O2 to maintain O2 sat greater than (%): 93
Special Instructions: TO MAINTAIN CONTINUOUS O2 SATS >/= 93%
Pulse Ox/cont/shift [RESP] Urgent
Quantity: 1
Special Instructions: continuous pulse ox
05/04/25 19:56
Complete Blood Count/With Diff Urgent
Comprehensive Metabolic Panel Urgent
05/04/25 20:54
Metoprolol [Lopressor] 25 mg PO NOW STA
05/04/25 20:59
Doxycycline [Vibramycin] 100 mg PO NOW STA
05/04/25 21:10
Amoxicillin 250 mg/Clav 125 mg [Augmentin 250 mg/125 mg] 1 tablet PO NOW STA
Losartan [Cozaar] 100 mg PO NOW STA
Abnormal Lab Results
05/04/25
19:56
RBC 3.00 L 10^6/uL
(4.70-6.10)
Hgb 9.5 L g/dL
(13.0-18.0)
Hct 26.9 L %
(39.0-52.0)
MCH 31.7 H pg
(27.0-31.0)
Absolute Lymphs (auto) 1.0 L 10^3/uL
(1.2-3.4)
Lymphocytes % 20.4 L %
(20.5-51.1)
Monocytes % 9.8 H %
(1.7-9.3)
Sodium 127 L mmol/L
(135-145)
Carbon Dioxide 18 L mmol/L
(22-30)
BUN 31 H mg/dl
(9-20)
Creatinine 2.7 H mg/dL
(0.7-1.3)
Calcium 8.2 L mg/dl
(8.4-10.2)
05/04/25 19:56
05/04/25 19:56
Vital Signs
Initial and Last Documented VS:
Initial Vital Signs
Temp Pulse Resp BP Pulse Ox
97.9 F 74 18 233/112 99
05/04/25 19:03 05/04/25 19:03 05/04/25 19:03 05/04/25 19:03 05/04/25 19:03
Last Documented Vital Signs
Temp Pulse Resp BP Pulse Ox
97.9 F 75 16 188/83 98
05/04/25 19:03 05/04/25 21:25 05/04/25 21:25 05/04/25 21:25 05/04/25 21:25
*Pulse Oximetry
SaO2: 99
Oxygen Mode of Delivery: Room air
Patient hypoxic: no
*Critical Care Note
Total Time (30-74mins, 75-104mins- exclusive of procedures): Not Applicable
ED Attending Note
-
Portions of this chart may have been created with voice recognition software.� Occasional wrong word or��sound alike� substitutions may have occurred due to the inherent limitations of voice recognition software.
Discharge Plan
Departure
Patient Disposition: Home (Routine Discharge)
Date of Disposition: 05/04/25
Time of Disposition: :25
Patient with high blood pressure during this ER visit?: Yes
Condition: Good
Discharge Problem:
Cough with hemoptysis, Hypertensive urgency
Instructions: Coughing up blood, BLOOD PRESSURE
Prescriptions:
New
doxycycline hyclate 100 mg capsule
100 mg PO BID Qty: 14 0RF
amoxicillin-pot clavulanate 250-125 mg tablet
1 tab PO BID Qty: 14 0RF
No Action
potassium chloride [Klor-Con M20] 20 MEQ tablet,ER particles/crystals
20 meq PO DAILY
metoprolol succinate 25 MG tablet extended release 24 hr
25 mg PO DAILY
losartan [Cozaar] 100 MG tablet
100 mg PO DAILY
finasteride 5 MG tablet
5 mg PO DAILY
Trelegy Ellipta 100-62.5-25 mcg Blister With Device
1 inh INHALATION R DAILY
bumetanide 1 MG tablet
1 mg PO DAILY
cephalexin 500 mg capsule
500 mg PO Q6H Qty: 40 0RF
Referrals:
Robert Fernandez MD [Active, Pulmonary Medicine] - Call in 1-3 days for appt
Luis A Trujillo MD [Family Provider, Internal Medicine] - Call in 1-3 days for appt
Interventions
Interventions:
*Risk Screen - Suicide Last Done: 05/04/25 19:03
*General Assessment Last Done: 05/04/25 19:03
*Neglect/Abuse Screening Last Done: 05/04/25 19:03
*ED- Fall Risk Assessment Last Done: 05/04/25 19:03
*ED COVID-19 Vaccine History Last Done: 05/04/25 19:44
*ED Influenza Vaccine History Last Done: 05/04/25 19:44
*Nursing Disposition Last Done: 05/04/25 21:25
ED- Pulmonary Assessment Last Done: 05/04/25 19:44
Discharge Date and Time
Discharge Date/Time: 05/04/25 21:34
Print Language: TELUGU
[2025-05-04 19:55] VITALS: BP 198/89
[2025-05-04 20:00] VITALS: BP 206/104
[2025-05-04 20:02] LABS: Hematocrit 26.9 % (39.0-52.0); Hemoglobin 9.5 g/dL (13.0-18.0); Mean Corp Hgb Conc. 35.3 g/dL (33.0-37.0); Mean Corpuscular Volume 89.7 fL (80.0-94.0); Nucleated Red Blood Cells % 0 % (-); Platelet Count 172 10^3/uL (130-400); Red Cell Dist. Width 13.6 % (11.5-14.5)
[2025-05-04 20:27] LABS: ALT (SGPT) 11 U/L (0-50); AST (SGOT) 22 U/L (17-59); Albumin 3.9 g/dl (3.5-5.0); Alkaline Phosphatase 60 U/L (38-126); Blood Urea Nitrogen 31 mg/dl (9-20); Calcium 8.2 mg/dl (8.4-10.2); Carbon Dioxide 18 mmol/L (22-30); Chloride 102 mmol/L (98-107); Glucose 87 mg/dl (70-99); Potassium 4.3 mmol/L (3.5-5.1); Sodium 127 mmol/L (135-145); Total Protein 6.9 g/dl (6.3-8.2); eGFR 23.25
[2025-05-04] MEDS: COZAAR 100 MG PO (21:21)
[2025-05-04] MEDS: AUGMENTIN 250 MG/125 MG 1 TABLET PO (21:21)
[2025-05-04] MEDS: LOPRESSOR 25 MG PO (21:22)
[2025-05-04] MEDS: VIBRAMYCIN 100 MG PO (21:22)
[2025-05-04 21:25] VITALS: BP 188/83
== END 2025-05-04 21:34 | disposition home or self-care (01) ==
LOC: EMR 18:58
PROVIDERS: Emergency Medicine; EMERGENCY PHYSICIAN Emergency Medicine; FAMILY PHYSICIAN Internal Medicine
DX: R04.2 Hemoptysis (principal); I16.0 Hypertensive urgency; I10 Essential (primary) hypertension; J44.9 Chronic obstructive pulmonary disease, unspecified; E87.1 Hypo-osmolality and hyponatremia; F17.200 Nicotine dependence, unspecified, uncomplicated
CPT/HCPCS: 99284; 71046; 80053; 85025; 93005

== ENCOUNTER → 2025-05-18 06:52 | Outpatient (REF) | payer MEDICARE, OTHER, SELFPAY | LOC: RAD 06:52 | PROVIDERS: ATTENDING PHYSICIAN Internal Medicine | DX: I73.9 Peripheral vascular disease, unspecified (principal) | CPT/HCPCS: 93922; 93925 ==

== ENCOUNTER → 2025-05-24 13:12 | Outpatient (REF) | payer MEDICARE, OTHER, SELFPAY | LOC: RAD 13:12 | PROVIDERS: ATTENDING PHYSICIAN Internal Medicine | DX: R04.2 Hemoptysis (principal); Z87.898 Personal history of other specified conditions; J44.9 Chronic obstructive pulmonary disease, unspecified; F17.200 Nicotine dependence, unspecified, uncomplicated | CPT/HCPCS: 71250 ==